=== PATIENT | male | born 1965 | race African-American/Black ===

== ENCOUNTER → 2021-08-04 | Outpatient (CLI) | payer OTHER ==
[~2021-08-04] MED LIST: HYDROCHLOROTHIA25 M2 PO; VALIUM5 MG PO
== END ==
LOC: HYPER 08:44
PROVIDERS: ATTEND Emergency Medicine
DX: T81.89XA Other complications of procedures, not elsewhere classified, initial encounter (principal); S31.829A Unspecified open wound of left buttock, initial encounter; L05.91 Pilonidal cyst without abscess; L72.0 Epidermal cyst; E11.39 Type 2 diabetes mellitus with other diabetic ophthalmic complication; I10 Essential (primary) hypertension; G47.33 Obstructive sleep apnea (adult) (pediatric); E66.9 Obesity, unspecified; F17.290 Nicotine dependence, other tobacco product, uncomplicated; Z68.34 Body mass index [BMI] 34.0-34.9, adult; Z79.899 Other long term (current) drug therapy; Y83.8 Other surgical procedures as the cause of abnormal reaction of the patient, or of later complication, without mention of misadventure at the time of the procedure; Y92.238 Other place in hospital as the place of occurrence of the external cause; X58.XXXA Exposure to other specified factors, initial encounter; Y93.89 Activity, other specified; Y92.89 Other specified places as the place of occurrence of the external cause; Y99.8 Other external cause status

== ENCOUNTER → 2021-08-05 | Outpatient (CLI) | payer OTHER | LOC: HYPER 07:41 | PROVIDERS: ATTEND Emergency Medicine | DX: T81.89XD Other complications of procedures, not elsewhere classified, subsequent encounter (principal); S31.829D Unspecified open wound of left buttock, subsequent encounter; L05.91 Pilonidal cyst without abscess; L72.0 Epidermal cyst; E11.39 Type 2 diabetes mellitus with other diabetic ophthalmic complication; I10 Essential (primary) hypertension; G47.33 Obstructive sleep apnea (adult) (pediatric); F17.200 Nicotine dependence, unspecified, uncomplicated; Z79.899 Other long term (current) drug therapy; Y83.8 Other surgical procedures as the cause of abnormal reaction of the patient, or of later complication, without mention of misadventure at the time of the procedure; X58.XXXD Exposure to other specified factors, subsequent encounter ==

== ENCOUNTER → 2021-08-08 | Outpatient (CLI) | payer OTHER | LOC: HYPER | PROVIDERS: ATTEND Emergency Medicine Emergency Medical Services | DX: T81.89XD Other complications of procedures, not elsewhere classified, subsequent encounter (principal); L05.91 Pilonidal cyst without abscess; L72.0 Epidermal cyst; E11.39 Type 2 diabetes mellitus with other diabetic ophthalmic complication; S31.829D Unspecified open wound of left buttock, subsequent encounter; S31.809D Unspecified open wound of unspecified buttock, subsequent encounter; I10 Essential (primary) hypertension; G47.33 Obstructive sleep apnea (adult) (pediatric); F17.290 Nicotine dependence, other tobacco product, uncomplicated; Z98.890 Other specified postprocedural states; Z79.899 Other long term (current) drug therapy; X58.XXXD Exposure to other specified factors, subsequent encounter; Y83.8 Other surgical procedures as the cause of abnormal reaction of the patient, or of later complication, without mention of misadventure at the time of the procedure ==

== ENCOUNTER → 2021-08-10 | Outpatient (CLI) | payer OTHER | LOC: HYPER 07:47 | PROVIDERS: ATTEND Emergency Medicine | DX: S31.829D Unspecified open wound of left buttock, subsequent encounter (principal); L05.91 Pilonidal cyst without abscess; L72.0 Epidermal cyst; E11.39 Type 2 diabetes mellitus with other diabetic ophthalmic complication; I10 Essential (primary) hypertension; G47.33 Obstructive sleep apnea (adult) (pediatric); F17.290 Nicotine dependence, other tobacco product, uncomplicated; Z79.899 Other long term (current) drug therapy; X58.XXXD Exposure to other specified factors, subsequent encounter ==

== ENCOUNTER → 2021-08-12 | Outpatient (CLI) | payer OTHER | LOC: HYPER 07:52 | PROVIDERS: ATTEND Emergency Medicine Emergency Medical Services | DX: T81.89XD Other complications of procedures, not elsewhere classified, subsequent encounter (principal); S31.829D Unspecified open wound of left buttock, subsequent encounter; L05.91 Pilonidal cyst without abscess; L72.0 Epidermal cyst; E11.39 Type 2 diabetes mellitus with other diabetic ophthalmic complication; G47.33 Obstructive sleep apnea (adult) (pediatric); I10 Essential (primary) hypertension; F17.290 Nicotine dependence, other tobacco product, uncomplicated; Z79.899 Other long term (current) drug therapy; X58.XXXD Exposure to other specified factors, subsequent encounter; Y83.8 Other surgical procedures as the cause of abnormal reaction of the patient, or of later complication, without mention of misadventure at the time of the procedure ==

== ENCOUNTER → 2021-08-15 | Outpatient (CLI) | payer OTHER | LOC: HYPER 07:43 | PROVIDERS: ATTEND Emergency Medicine Emergency Medical Services | DX: T81.89XD Other complications of procedures, not elsewhere classified, subsequent encounter (principal); S31.829D Unspecified open wound of left buttock, subsequent encounter; L05.91 Pilonidal cyst without abscess; L72.0 Epidermal cyst; E11.39 Type 2 diabetes mellitus with other diabetic ophthalmic complication; G47.33 Obstructive sleep apnea (adult) (pediatric); I10 Essential (primary) hypertension; F17.290 Nicotine dependence, other tobacco product, uncomplicated; Z79.899 Other long term (current) drug therapy; X58.XXXD Exposure to other specified factors, subsequent encounter; Y83.8 Other surgical procedures as the cause of abnormal reaction of the patient, or of later complication, without mention of misadventure at the time of the procedure ==

== ENCOUNTER → 2021-08-17 | Outpatient (CLI) | payer OTHER | LOC: HYPER 07:51 | PROVIDERS: ATTEND Emergency Medicine | DX: T81.89XD Other complications of procedures, not elsewhere classified, subsequent encounter (principal); S31.829D Unspecified open wound of left buttock, subsequent encounter; L05.91 Pilonidal cyst without abscess; L72.0 Epidermal cyst; E11.39 Type 2 diabetes mellitus with other diabetic ophthalmic complication; G47.33 Obstructive sleep apnea (adult) (pediatric); I10 Essential (primary) hypertension; E66.9 Obesity, unspecified; F17.290 Nicotine dependence, other tobacco product, uncomplicated; Z68.34 Body mass index [BMI] 34.0-34.9, adult; X58.XXXD Exposure to other specified factors, subsequent encounter ==

== ENCOUNTER → 2021-08-19 | Outpatient (CLI) | payer OTHER | LOC: HYPER 07:43 | PROVIDERS: ATTEND Emergency Medicine Emergency Medical Services | DX: T81.89XD Other complications of procedures, not elsewhere classified, subsequent encounter (principal); S31.829D Unspecified open wound of left buttock, subsequent encounter; E11.39 Type 2 diabetes mellitus with other diabetic ophthalmic complication; L05.91 Pilonidal cyst without abscess; L72.0 Epidermal cyst; E66.9 Obesity, unspecified; I10 Essential (primary) hypertension; G47.33 Obstructive sleep apnea (adult) (pediatric); F17.290 Nicotine dependence, other tobacco product, uncomplicated; Z68.34 Body mass index [BMI] 34.0-34.9, adult; Z79.899 Other long term (current) drug therapy; X58.XXXD Exposure to other specified factors, subsequent encounter; Y83.8 Other surgical procedures as the cause of abnormal reaction of the patient, or of later complication, without mention of misadventure at the time of the procedure ==

== ENCOUNTER → 2021-08-22 | Outpatient (CLI) | payer OTHER | LOC: HYPER 07:36 | PROVIDERS: ATTEND Emergency Medicine Emergency Medical Services | DX: T81.89XD Other complications of procedures, not elsewhere classified, subsequent encounter (principal); S31.829D Unspecified open wound of left buttock, subsequent encounter; L05.91 Pilonidal cyst without abscess; L72.0 Epidermal cyst; E11.39 Type 2 diabetes mellitus with other diabetic ophthalmic complication; I10 Essential (primary) hypertension; E66.9 Obesity, unspecified; G47.33 Obstructive sleep apnea (adult) (pediatric); F17.290 Nicotine dependence, other tobacco product, uncomplicated; Z68.34 Body mass index [BMI] 34.0-34.9, adult; Z79.899 Other long term (current) drug therapy; X58.XXXD Exposure to other specified factors, subsequent encounter; Y83.8 Other surgical procedures as the cause of abnormal reaction of the patient, or of later complication, without mention of misadventure at the time of the procedure ==

== ENCOUNTER → 2021-08-24 | Outpatient (CLI) | payer OTHER | LOC: HYPER 08-23 16:24 | PROVIDERS: ATTEND Emergency Medicine | DX: T81.89XD Other complications of procedures, not elsewhere classified, subsequent encounter (principal); L05.91 Pilonidal cyst without abscess; L72.0 Epidermal cyst; E11.39 Type 2 diabetes mellitus with other diabetic ophthalmic complication; S31.829D Unspecified open wound of left buttock, subsequent encounter; I10 Essential (primary) hypertension; E66.9 Obesity, unspecified; G47.33 Obstructive sleep apnea (adult) (pediatric); F17.290 Nicotine dependence, other tobacco product, uncomplicated; Z68.34 Body mass index [BMI] 34.0-34.9, adult; Z79.899 Other long term (current) drug therapy; Y83.8 Other surgical procedures as the cause of abnormal reaction of the patient, or of later complication, without mention of misadventure at the time of the procedure; X58.XXXD Exposure to other specified factors, subsequent encounter ==

== ENCOUNTER → 2021-08-31 | Outpatient (CLI) | payer OTHER | LOC: HYPER 11:30 | PROVIDERS: ATTEND Emergency Medicine | DX: T81.89XD Other complications of procedures, not elsewhere classified, subsequent encounter (principal); L05.91 Pilonidal cyst without abscess; L72.0 Epidermal cyst; E11.39 Type 2 diabetes mellitus with other diabetic ophthalmic complication; S31.829D Unspecified open wound of left buttock, subsequent encounter; I10 Essential (primary) hypertension; E66.9 Obesity, unspecified; G47.33 Obstructive sleep apnea (adult) (pediatric); F17.290 Nicotine dependence, other tobacco product, uncomplicated; Z68.34 Body mass index [BMI] 34.0-34.9, adult; X58.XXXD Exposure to other specified factors, subsequent encounter; Y83.8 Other surgical procedures as the cause of abnormal reaction of the patient, or of later complication, without mention of misadventure at the time of the procedure ==

== ENCOUNTER → 2021-09-05 | Outpatient (CLI) | payer OTHER | LOC: HYPER 10:02 | PROVIDERS: ATTEND Emergency Medicine Emergency Medical Services | DX: T81.89XD Other complications of procedures, not elsewhere classified, subsequent encounter (principal); L05.91 Pilonidal cyst without abscess; L72.0 Epidermal cyst; E11.39 Type 2 diabetes mellitus with other diabetic ophthalmic complication; S31.829D Unspecified open wound of left buttock, subsequent encounter; I10 Essential (primary) hypertension; E66.9 Obesity, unspecified; G47.33 Obstructive sleep apnea (adult) (pediatric); F17.290 Nicotine dependence, other tobacco product, uncomplicated; Z68.34 Body mass index [BMI] 34.0-34.9, adult; X58.XXXD Exposure to other specified factors, subsequent encounter; Y83.8 Other surgical procedures as the cause of abnormal reaction of the patient, or of later complication, without mention of misadventure at the time of the procedure ==

== ENCOUNTER → 2021-09-09 | Outpatient (CLI) | payer OTHER | LOC: HYPER 09-07 15:55 | PROVIDERS: ATTEND Emergency Medicine | DX: T81.89XD Other complications of procedures, not elsewhere classified, subsequent encounter (principal); S31.829D Unspecified open wound of left buttock, subsequent encounter; L05.91 Pilonidal cyst without abscess; L72.0 Epidermal cyst; E11.39 Type 2 diabetes mellitus with other diabetic ophthalmic complication; I10 Essential (primary) hypertension; G47.33 Obstructive sleep apnea (adult) (pediatric); E66.9 Obesity, unspecified; F17.290 Nicotine dependence, other tobacco product, uncomplicated; Z68.34 Body mass index [BMI] 34.0-34.9, adult; Z79.899 Other long term (current) drug therapy; Y83.8 Other surgical procedures as the cause of abnormal reaction of the patient, or of later complication, without mention of misadventure at the time of the procedure; X58.XXXD Exposure to other specified factors, subsequent encounter ==

== ENCOUNTER → 2021-09-16 | Outpatient (CLI) | payer OTHER | LOC: HYPER 07:49 | PROVIDERS: ATTEND Emergency Medicine Emergency Medical Services | DX: T81.89XD Other complications of procedures, not elsewhere classified, subsequent encounter (principal); L05.91 Pilonidal cyst without abscess; S31.829D Unspecified open wound of left buttock, subsequent encounter; L72.0 Epidermal cyst; E11.39 Type 2 diabetes mellitus with other diabetic ophthalmic complication; I10 Essential (primary) hypertension; G47.33 Obstructive sleep apnea (adult) (pediatric); F17.290 Nicotine dependence, other tobacco product, uncomplicated; Z98.890 Other specified postprocedural states; Z79.899 Other long term (current) drug therapy; Y83.8 Other surgical procedures as the cause of abnormal reaction of the patient, or of later complication, without mention of misadventure at the time of the procedure; X58.XXXD Exposure to other specified factors, subsequent encounter ==

== ENCOUNTER → 2021-09-19 | Outpatient (CLI) | payer OTHER | LOC: HYPER 07:37 | PROVIDERS: ATTEND Emergency Medicine Emergency Medical Services | DX: T81.89XD Other complications of procedures, not elsewhere classified, subsequent encounter (principal); S31.829D Unspecified open wound of left buttock, subsequent encounter; L05.91 Pilonidal cyst without abscess; L72.0 Epidermal cyst; E11.39 Type 2 diabetes mellitus with other diabetic ophthalmic complication; G47.33 Obstructive sleep apnea (adult) (pediatric); I10 Essential (primary) hypertension; F17.290 Nicotine dependence, other tobacco product, uncomplicated; X58.XXXD Exposure to other specified factors, subsequent encounter; Y83.8 Other surgical procedures as the cause of abnormal reaction of the patient, or of later complication, without mention of misadventure at the time of the procedure ==

== ENCOUNTER → 2021-09-23 | Outpatient (CLI) | payer OTHER | LOC: HYPER 08:44 | PROVIDERS: ATTEND Emergency Medicine Emergency Medical Services | DX: T81.89XD Other complications of procedures, not elsewhere classified, subsequent encounter (principal); S31.829D Unspecified open wound of left buttock, subsequent encounter; L05.91 Pilonidal cyst without abscess; L72.0 Epidermal cyst; E11.39 Type 2 diabetes mellitus with other diabetic ophthalmic complication; I10 Essential (primary) hypertension; E66.9 Obesity, unspecified; G47.33 Obstructive sleep apnea (adult) (pediatric); F17.290 Nicotine dependence, other tobacco product, uncomplicated; Z68.34 Body mass index [BMI] 34.0-34.9, adult; Z79.899 Other long term (current) drug therapy; Y83.8 Other surgical procedures as the cause of abnormal reaction of the patient, or of later complication, without mention of misadventure at the time of the procedure; X58.XXXD Exposure to other specified factors, subsequent encounter ==

== ENCOUNTER → 2021-09-27 | Outpatient (CLI) | payer OTHER | LOC: HYPER 07:58 | PROVIDERS: ATTEND Specialist | DX: T81.89XD Other complications of procedures, not elsewhere classified, subsequent encounter (principal); S31.829D Unspecified open wound of left buttock, subsequent encounter; L05.91 Pilonidal cyst without abscess; L72.0 Epidermal cyst; E11.39 Type 2 diabetes mellitus with other diabetic ophthalmic complication; I10 Essential (primary) hypertension; E66.9 Obesity, unspecified; G47.33 Obstructive sleep apnea (adult) (pediatric); F17.290 Nicotine dependence, other tobacco product, uncomplicated; Z68.34 Body mass index [BMI] 34.0-34.9, adult; X58.XXXD Exposure to other specified factors, subsequent encounter; Y83.8 Other surgical procedures as the cause of abnormal reaction of the patient, or of later complication, without mention of misadventure at the time of the procedure ==

== ENCOUNTER → 2021-09-29 | Outpatient (CLI) | payer OTHER | LOC: HYPER 08:00 | PROVIDERS: ATTEND Emergency Medicine | DX: T81.89XD Other complications of procedures, not elsewhere classified, subsequent encounter (principal); S31.829D Unspecified open wound of left buttock, subsequent encounter; E11.628 Type 2 diabetes mellitus with other skin complications; L05.91 Pilonidal cyst without abscess; L72.0 Epidermal cyst; E11.39 Type 2 diabetes mellitus with other diabetic ophthalmic complication; G47.33 Obstructive sleep apnea (adult) (pediatric); I10 Essential (primary) hypertension; F17.290 Nicotine dependence, other tobacco product, uncomplicated; E66.9 Obesity, unspecified; Z68.34 Body mass index [BMI] 34.0-34.9, adult; Z79.899 Other long term (current) drug therapy; X58.XXXD Exposure to other specified factors, subsequent encounter; Y83.8 Other surgical procedures as the cause of abnormal reaction of the patient, or of later complication, without mention of misadventure at the time of the procedure ==

== ENCOUNTER → 2021-10-07 | Outpatient (CLI) | payer OTHER | LOC: HYPER 08:07 | PROVIDERS: ATTEND Emergency Medicine Emergency Medical Services | DX: T81.89XD Other complications of procedures, not elsewhere classified, subsequent encounter (principal); S31.829D Unspecified open wound of left buttock, subsequent encounter; L05.91 Pilonidal cyst without abscess; L72.0 Epidermal cyst; E11.39 Type 2 diabetes mellitus with other diabetic ophthalmic complication; E11.628 Type 2 diabetes mellitus with other skin complications; I10 Essential (primary) hypertension; F17.290 Nicotine dependence, other tobacco product, uncomplicated; Z68.34 Body mass index [BMI] 34.0-34.9, adult; G47.33 Obstructive sleep apnea (adult) (pediatric); Z79.899 Other long term (current) drug therapy; Y83.8 Other surgical procedures as the cause of abnormal reaction of the patient, or of later complication, without mention of misadventure at the time of the procedure; X58.XXXD Exposure to other specified factors, subsequent encounter ==

== ENCOUNTER → 2021-10-10 | Outpatient (CLI) | payer OTHER | LOC: HYPER 07:38 | PROVIDERS: ATTEND Emergency Medicine Emergency Medical Services | DX: T81.89XD Other complications of procedures, not elsewhere classified, subsequent encounter (principal); S31.829D Unspecified open wound of left buttock, subsequent encounter; E11.628 Type 2 diabetes mellitus with other skin complications; L05.91 Pilonidal cyst without abscess; L72.0 Epidermal cyst; E11.39 Type 2 diabetes mellitus with other diabetic ophthalmic complication; G47.33 Obstructive sleep apnea (adult) (pediatric); I10 Essential (primary) hypertension; E66.9 Obesity, unspecified; F17.290 Nicotine dependence, other tobacco product, uncomplicated; Z79.899 Other long term (current) drug therapy; Y83.8 Other surgical procedures as the cause of abnormal reaction of the patient, or of later complication, without mention of misadventure at the time of the procedure; X58.XXXD Exposure to other specified factors, subsequent encounter ==

== ENCOUNTER → 2021-10-14 | Outpatient (CLI) | payer OTHER | LOC: HYPER 08:42 | PROVIDERS: ATTEND Emergency Medicine Emergency Medical Services | DX: T81.89XD Other complications of procedures, not elsewhere classified, subsequent encounter (principal); S31.829D Unspecified open wound of left buttock, subsequent encounter; E11.628 Type 2 diabetes mellitus with other skin complications; L05.91 Pilonidal cyst without abscess; L72.0 Epidermal cyst; E11.39 Type 2 diabetes mellitus with other diabetic ophthalmic complication; I10 Essential (primary) hypertension; G47.33 Obstructive sleep apnea (adult) (pediatric); E66.9 Obesity, unspecified; F17.290 Nicotine dependence, other tobacco product, uncomplicated; Z68.34 Body mass index [BMI] 34.0-34.9, adult; Z79.899 Other long term (current) drug therapy; Y83.8 Other surgical procedures as the cause of abnormal reaction of the patient, or of later complication, without mention of misadventure at the time of the procedure; X58.XXXD Exposure to other specified factors, subsequent encounter ==